=== PATIENT | male | born 1945 | race Caucasian/White ===

== ENCOUNTER 2016-12-12 15:00 | Emergency (ER) | payer MEDICARE, OTHER ==
[2016-12-12 15:31] VITALS: BP 128/89
--- NOTE | 2016-12-12 15:47 | EDM.PDOC ---
ED HPI GENERAL MEDICAL PROBLEM - General Chief Complaint: General Stated Complaint: cold Time Seen by Provider: 12/12/16 15:30 Source of Information: Reports: Patient History Limitations: Reports: No limitations - History of Present Illness INITIAL COMMENTS - FREE TEXT/NARRATIVE: 71 yr old male with 3 week history of nasal congestion, dry cough which is productive in the AM of clear sputum. Cough is worse of the past couple of days. No fever, sore throat-irritated and 'thick back there', denies sinus pain or pressure. Pt is currently on 14 day course of Levaquin 750mg tablets from another provider after undergoing medical workup and having been diagnosed with a UTI. He had hematuria which is now resolved. Onset: gradual Duration: Week(s): Severity: mild Improves with: Reports: None Worsens with: Reports: None Associated Symptoms: Reports: denies other symptoms - Related Data Allergies Allergy/AdvReac Type Severity Reaction Status Date / Time lisinopril Allergy Severe Difficulty Verified 12/12/16 15:17 Breathing Penicillins Allergy Swelling Verified 12/12/16 15:17 Home Meds: Home Meds Atenolol [Tenormin] 50 mg PO DAILY 12/30/13 [History] Irbesartan [Avapro] 100 mg PO DAILY 12/30/13 [History] atorvaSTATin [Lipitor] 20 mg PO DAILY 12/30/13 [History] Apixaban [Eliquis] 5 mg PO BID 03/06/15 [History] Levofloxacin [IJD: Levofloxacin] 750 mg PO DAILY 12/12/16 [History] Past Medical History HEENT History: Reports: Impaired vision Cardiovascular History: Reports: Afib, High cholesterol, Hypertension Other Cardiovascular History: atrial flutter Other Neuro History: subdural hematoma Dermatologic History: Reports: Psoriasis - Infectious Disease History Infectious Disease History: Reports: Chicken pox, Measles, Mumps - Past Surgical History Other Cardiovascular Surgeries/Procedures: aortic stent Social & Family History - Tobacco Use Smoking Status *Q: Current Every Day Smoker Years of Tobacco use: 50 Packs/Tins Daily: 0.5 Used Tobacco, but Quit: No Second Hand Smoke Exposure: No - Caffeine Use Caffeine Use: Reports: None - Alcohol Use Days Per Week of Alcohol Use: 1 Number of Drinks Per Day: 1 Total Drinks Per Week: 1 - Recreational Drug Use Recreational Drug Use: No ED ROS GENERAL - Review of Systems Review Of Systems: See Below Constitutional: Reports: no symptoms HEENT: Reports: Rhinitis Respiratory: Reports: Cough, Sputum (scant clear sputum) Cardiovascular: Reports: Other (hx of irregular heart rhythm, both a flutter and a fib. Off amiodarone 3 years ago, cardiology appt on Monday and pt wants to restart.) Musculoskeletal: Reports: no symptoms Neurological: Reports: No Symptoms Psychiatric: Reports: No symptoms Hematologic/Lymphatic: Reports: no symptoms Immunologic: Reports: no symptoms ED EXAM, GENERAL - Physical Exam Exam: See Below Exam Limited By: No limitations General Appearance: alert, no apparent distress Eye Exam: bilateral eye: normal inspection Ears: normal external exam, normal canal, hearing grossly normal, normal TMs Nose: normal inspection, clear rhinorrhea (mucosa swelling) Throat/Mouth: Normal inspection, Normal lips, Normal voice, Other (clear post nasal drainage) Head: atraumatic, normocephalic Neck: normal inspection, supple, non-tender Respiratory/Chest: no respiratory distress, lungs clear, normal breath sounds Cardiovascular: irregularly irregular Neurological: alert, oriented, normal cognition, normal gait Psychiatric: normal affect, normal mood Course - Vital Signs Last Recorded V/S: Last Vital Signs Temp 36.4 C 12/12/16 15:22 Pulse 80 12/12/16 15:22 Resp 16 12/12/16 15:22 BP 128/89 12/12/16 15:22 Pulse Ox 98 12/12/16 15:22 Departure - Departure Time of Disposition: 15:47 Disposition: Home, Self-Care 01 Condition: good Clinical Impression: Post-nasal drip Instructions: Nasal Allergies Referrals: PCP,None [Primary Care Provider] - Forms: ED Department Discharge Additional Instructions: 1. Continue your previously prescribed medications. 2. Start Claritin or loratadine once per day. 3. Keep all scheduled appointments as discussed. - Problem List & Annotations (1) Post-nasal drip SNOMED Code(s): 27098746 Code(s): R09.82 - POSTNASAL DRIP Status: Acute Priority: Medium - Problem List Review Problem List Initiated/Reviewed/Updated: Yes
== END 2016-12-12 16:13 | disposition home or self-care (01) ==
LOC: JP.ED 15:00
DX: R09.82 Postnasal drip (principal); I48.91 Unspecified atrial fibrillation; I10 Essential (primary) hypertension; F17.210 Nicotine dependence, cigarettes, uncomplicated; E78.00 Pure hypercholesterolemia, unspecified; Z79.899 Other long term (current) drug therapy; Z98.890 Other specified postprocedural states; Z88.0 Allergy status to penicillin; Z88.8 Allergy status to other drugs, medicaments and biological substances
CPT/HCPCS: 99282; 99283

== ENCOUNTER 2016-12-30 07:44 | Emergency (ER) | payer MEDICARE, OTHER ==
[2016-12-30 07:58] VITALS: BP 155/115
--- NOTE | 2016-12-30 08:23 | EDM.PDOC ---
ED HPI GENERAL MEDICAL PROBLEM - General Chief Complaint: Skin Complaint Stated Complaint: RT ARM INFECTED Time Seen by Provider: 12/30/16 08:15 Source of Information: Reports: Patient, Old Records, RN Notes Reviewed History Limitations: Reports: No Limitations - History of Present Illness INITIAL COMMENTS - FREE TEXT/NARRATIVE: 71-year-old gentleman presents emergency department day complaint of right arm, he recently had IV placement for a CT scan following placement and IV he's developed a red patch about the size of a softball in his antecubital region on the right arm he denies any fevers however it is warm to the touch - Related Data Allergies Allergy/AdvReac Type Severity Reaction Status Date / Time lisinopril Allergy Severe Difficulty Verified 12/30/16 07:58 Breathing Penicillins Allergy Swelling Verified 12/30/16 07:58 Home Meds: Home Meds Atenolol [Tenormin] 25 mg PO DAILY 12/30/13 [History] Irbesartan [Avapro] 100 mg PO DAILY 12/30/13 [History] atorvaSTATin [Lipitor] 20 mg PO DAILY 12/30/13 [History] Apixaban [Eliquis] 5 mg PO BID 03/06/15 [History] Sotalol [Betapace, Sorine] 80 mg PO BID 12/30/16 [History] Past Medical History HEENT History: Reports: Impaired Vision Cardiovascular History: Reports: Afib, High Cholesterol, Hypertension Other Cardiovascular History: atrial flutter Genitourinary History: Reports: Other (See Below) Other Genitourinary History: recent uti possible cyst Other Neuro History: subdural hematoma Dermatologic History: Reports: Psoriasis - Infectious Disease History Infectious Disease History: Reports: Chicken Pox, Measles, Mumps - Past Surgical History Other Cardiovascular Surgeries/Procedures: aortic stent Social & Family History - Tobacco Use Smoking Status *Q: Current Every Day Smoker Years of Tobacco use: 50 Packs/Tins Daily: 0.5 Used Tobacco, but Quit: No Second Hand Smoke Exposure: Yes - Caffeine Use Caffeine Use: Reports: Coffee Other Caffeine Use: decaf coffee - Alcohol Use Days Per Week of Alcohol Use: 1 Number of Drinks Per Day: 0 Total Drinks Per Week: 0 - Recreational Drug Use Recreational Drug Use: No ED ROS GENERAL - Review of Systems Review Of Systems: See Below Constitutional: Denies: Fever, Chills HEENT: Reports: No Symptoms Respiratory: Reports: No Symptoms Cardiovascular: Reports: No Symptoms Skin: Reports: Rash, Erythema, Change in Color ED EXAM, SKIN/RASH Exam: See Below Text/Narrative:: Examination of the right arm radial pulses 2+ there is an erythematous patch in the antecubital region about the size of a softball it is warm to the touch it is not tender to the touch and do not appreciate any streak Exam Limited By: No Limitations General Appearance: Alert, WD/WN, No Apparent Distress Course - Vital Signs Last Recorded V/S: Last Vital Signs Temp 97.7 F 12/30/16 08:04 Pulse 77 12/30/16 08:04 Resp 16 12/30/16 08:04 BP 155/115 H 12/30/16 08:04 Pulse Ox 98 12/30/16 08:04 Departure - Departure Time of Disposition: 08:23 Disposition: Home, Self-Care 01 Condition: good Clinical Impression: Right arm cellulitis - Discharge Information Forms: ED Department Discharge Additional Instructions: Take full course of antibiotics, use Tylenol or Motrin as needed for pain control, Please followup with your primary care provider in 3-5 days if not better, please call return to the emergency department with worsening of symptoms. - Assessment/Plan Plan: Assessment Acuity = acute Site and laterality = cellulitis right arm Etiology = probably related to recent IV placement with bacterial cause Manifestations = none Location of injury = home Lab values = none Plan Because of his penicillin allergy elected to treat with clindamycin 300 mg 4 times a day x7 days follow up with primary care in 3-5 days if no improvement Patient was in agreement with the plan all questions were answered, they were instructed to return to the emergency department or call for worsening symptoms. This note was dictated using iPointer voice recognition software please call with any questions.
== END 2016-12-30 08:47 | disposition home or self-care (01) ==
LOC: JP.ED 07:44
DX: L03.113 Cellulitis of right upper limb (principal); H54.7 Unspecified visual loss; I48.91 Unspecified atrial fibrillation; E78.00 Pure hypercholesterolemia, unspecified; I10 Essential (primary) hypertension; L40.9 Psoriasis, unspecified; F17.210 Nicotine dependence, cigarettes, uncomplicated; Z88.0 Allergy status to penicillin; Z88.8 Allergy status to other drugs, medicaments and biological substances; Z79.899 Other long term (current) drug therapy
CPT/HCPCS: 99283

== ENCOUNTER 2017-01-01 13:26 | Emergency (ER) | payer MEDICARE, OTHER | END 2017-01-01 14:30 | disposition left against medical advice (07) | LOC: JP.ED 13:26 | DX: Z53.21 Procedure and treatment not carried out due to patient leaving prior to being seen by health care provider (principal) ==

== ENCOUNTER 2017-01-02 08:04 | Emergency (ER) | payer MEDICARE, OTHER ==
[2017-01-02 08:13] VITALS: BP 162/102
--- NOTE | 2017-01-02 08:53 | EDM.PDOC ---
ED HPI GENERAL MEDICAL PROBLEM - General Chief Complaint: Skin Complaint Stated Complaint: RT ARM INFECTED Time Seen by Provider: 01/02/17 08:22 Source of Information: Reports: Patient History Limitations: Reports: No Limitations - History of Present Illness INITIAL COMMENTS - FREE TEXT/NARRATIVE: History of present illness: [71-year-old male who is presenting with an erythematous rash in the right antecubital fossa. He had been seen in [place] and had a CT examination with IV contrast in the IV was placed in the right antecubital fossa. He was seen here and started on antibiotics with concerns of cellulitis. He is mcc through a ten-day course of clindamycin. The erythema seems to be expanding and so he wanted to be rechecked. He's had no fevers or chills he does not feel ill he has been putting [id number] hydrocortisone cream on the rash. He's also developed a pruritic rash on his right lower abdomen. He thinks that this is somehow related to the cellulitis of his right antecubital fossa.] Review of systems: As per history of present illness and below otherwise all systems reviewed and negative. Past medical history: As per history of present illness and as reviewed below otherwise noncontributory. Surgical history: As per history of present illness and as reviewed below otherwise noncontributory. Social history: No reported history of drug or alcohol abuse. Family history: As per history of present illness and as reviewed below otherwise noncontributory. Physical exam: HEENT: Atraumatic, normocephalic, pupils reactive, negative for conjunctival pallor or scleral icterus, mucous membranes moist, throat clear, neck supple, nontender, trachea midline. Lungs: Clear to auscultation, breath sounds equal bilaterally, chest nontender. Heart: S1S2, regular, negative for clicks, rubs, or JVD. Abdomen: Soft, nondistended, nontender. Negative for masses or hepatosplenomegaly. Negative for costovertebral tenderness. he does have a patch of erythema on the right lateral abdomen that is-like in nature which he has been scratching. Pelvis: Stable nontender. Genitourinary: Deferred. Rectal: Deferred. Extremities:examination of the right antecubital fossa does reveal a 12 cm diameter erythematous lesion that is slightly raised and slightly warm with a central focus being the acute fossa. This appears to be more an inflammatory reaction rather than an infection but I am not certain. Neuro: Awake, alert, oriented. Exam nonfocal. Diagnostics: [] Therapeutics: [] Impression: [cellulitis of the right antecubital fossa Id reaction of the right abdomen] Plan: [I was going to place him on prednisone because of a strong inflammatory component to his reaction to the dye but he is on sotalol and the drug interaction between sotalol and prednisone it is severe enough that I don't think we want to take that risk. Hence we will continue with the clindamycin and [id number] hydrocortisone. He is not running a fever or feeling ill and so he will this rash is expanding and we will continue on this course and if he becomes yellow or feverish and he'll need to be reevaluated. Hopefully of just clear up on its own.] Definitive disposition and diagnosis as appropriate pending reevaluation and review of above. - Related Data Allergies Allergy/AdvReac Type Severity Reaction Status Date / Time lisinopril Allergy Severe Difficulty Verified 01/02/17 08:24 Breathing Penicillins Allergy Swelling Verified 01/02/17 08:24 Home Meds: Home Meds Atenolol [Tenormin] 25 mg PO DAILY 12/30/13 [History] Irbesartan [Avapro] 100 mg PO DAILY 12/30/13 [History] atorvaSTATin [Lipitor] 20 mg PO DAILY 12/30/13 [History] Apixaban [Eliquis] 5 mg PO BID 03/06/15 [History] Clindamycin HCl 300 mg PO QID #28 capsule 12/30/16 [Rx] Sotalol [Betapace, Sorine] 80 mg PO BID 12/30/16 [History] Clindamycin HCl 1 tab PO TID 01/02/17 [History] Past Medical History HEENT History: Reports: Impaired Vision Cardiovascular History: Reports: Afib, High Cholesterol, Hypertension Other Cardiovascular History: atrial flutter Genitourinary History: Reports: Other (See Below) Other Genitourinary History: recent uti possible cyst known bladder stone Other Neuro History: subdural hematoma Dermatologic History: Reports: Psoriasis - Infectious Disease History Infectious Disease History: Reports: Chicken Pox, Measles, Mumps - Past Surgical History Other Cardiovascular Surgeries/Procedures: aortic stent Social & Family History - Tobacco Use Smoking Status *Q: Current Every Day Smoker Years of Tobacco use: 50 Packs/Tins Daily: 0.5 Used Tobacco, but Quit: No Second Hand Smoke Exposure: Yes - Caffeine Use Caffeine Use: Reports: Coffee Other Caffeine Use: decaf coffee - Alcohol Use Days Per Week of Alcohol Use: 1 Number of Drinks Per Day: 0 Total Drinks Per Week: 0 - Recreational Drug Use Recreational Drug Use: No ED ROS GENERAL - Review of Systems Review Of Systems: ROS reveals no pertinent complaints other than HPI. ED EXAM, SKIN/RASH Exam: See Below Course - Vital Signs Last Recorded V/S: Last Vital Signs Temp 35.5 C 01/02/17 08:23 Pulse 88 01/02/17 08:23 Resp 16 01/02/17 08:23 BP 162/102 H 01/02/17 08:23 Pulse Ox 92 L 01/02/17 08:23 Departure - Departure Time of Disposition: 08:53 Disposition: Home, Self-Care 01 Condition: good Clinical Impression: Cellulitis of antecubital fossa - Discharge Information Forms: ED Department Discharge
== END 2017-01-02 09:25 | disposition home or self-care (01) ==
LOC: JP.ED 08:04
DX: L03.113 Cellulitis of right upper limb (principal); I10 Essential (primary) hypertension; I48.91 Unspecified atrial fibrillation; E78.00 Pure hypercholesterolemia, unspecified; F17.210 Nicotine dependence, cigarettes, uncomplicated; Z95.5 Presence of coronary angioplasty implant and graft; Z79.899 Other long term (current) drug therapy; Z88.0 Allergy status to penicillin; Z88.8 Allergy status to other drugs, medicaments and biological substances
CPT/HCPCS: 99282; 99283

== ENCOUNTER 2019-11-18 23:36 | Emergency (ER) | payer MEDICARE, OTHER ==
[2019-11-18] MEDS ORDERED: Sodium Chloride 0.9% 10 ML Syringe FLUSH PRN (23:48)
--- NOTE | 2019-11-18 23:58 | EDM.PDOC ---
ED HPI GENERAL MEDICAL PROBLEM - General Chief Complaint: Neuro Symptoms/Deficits Stated Complaint: LIMP LEFT ARM Time Seen by Provider: 11/18/19 23:40 Source of Information: Reports: Patient, RN History Limitations: Reports: Other (limited old records) - History of Present Illness INITIAL COMMENTS - FREE TEXT/NARRATIVE: 74 yo male from [place], [place] is up here since last Monday visiting his cabin. Tonight he experienced onset of weakness and intermittent pain to the L arm that came on at 10 pm as he was getting into bed. No hx of the same. Does have a pacemaker. No chest pain. Has not missed any of his meds. L hand is cold and he has pain to the L hand. The entire L arm is weak. Smokes 1/2 ppd. Has a past hx of a dissecting thoracic aneurysm. 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: Other (see below) (none) - Related Data Allergies Allergy/AdvReac Type Severity Reaction Status Date / Time lisinopril Allergy Severe Difficulty Verified 11/18/19 23:47 Breathing Penicillins Allergy Swelling Verified 11/18/19 23:47 Home Meds: Home Meds Irbesartan [Avapro] 150 mg PO DAILY 12/30/13 [History] Apixaban [Eliquis] 5 mg PO BID 03/06/15 [History] Clobetasol [Clobetasol Propionate 0.05%] 30 gm TOP BID PRN 02/12/19 [History] Hydrocodone/Acetaminophen [Hydrocodon-Acetaminoph 7.5-325] 1 each PO Q4HR PRN [History] Metoprolol Tartrate 50 mg PO BID 02/12/19 [History] atorvaSTATin [Lipitor] 80 mg PO DAILY 02/12/19 [History] Past Medical History HEENT History: Reports: Impaired Vision Cardiovascular History: Reports: Afib, High Cholesterol, Hypertension Other Cardiovascular History: atrial flutter Respiratory History: Reports: None Gastrointestinal History: Reports: None Genitourinary History: Reports: Other (See Below) Other Genitourinary History: recent uti possible cyst known bladder stone Musculoskeletal History: Reports: Other (See Below) Other Musculoskeletal History: R shoulder pain Other Neuro History: subdural hematoma Psychiatric History: Reports: None Endocrine/Metabolic History: Reports: None Hematologic History: Reports: None Immunologic History: Reports: None Oncologic (Cancer) History: Reports: None Dermatologic History: Reports: Psoriasis - Infectious Disease History Infectious Disease History: Reports: Chicken Pox, Measles, Mumps - Past Surgical History HEENT Surgical History: Reports: None Cardiovascular Surgical History: Reports: Pacer Other Cardiovascular Surgeries/Procedures: aortic stent Social & Family History - Caffeine Use Caffeine Use: Reports: None Other Caffeine Use: decaf coffee ED ROS GENERAL - Review of Systems Review Of Systems: See Below Constitutional: Reports: No Symptoms HEENT: Reports: No Symptoms Respiratory: Reports: No Symptoms Cardiovascular: Reports: No Symptoms Endocrine: Reports: No Symptoms GI/Abdominal: Reports: No Symptoms : Reports: No Symptoms Musculoskeletal: Reports: Hand Pain (L hand/wrist pain). Denies: Leg Pain Neurological: Reports: Weakness (L hand/arm) Psychiatric: Reports: No Symptoms ED EXAM, NEURO - Physical Exam Exam: See Below Exam Limited By: No Limitations General Appearance: Alert, WD/WN, No Apparent Distress, Obese Eye Exam: Bilateral Eye: Normal Inspection Ears: Normal External Exam, Normal Canal, Hearing Grossly Normal Nose: Normal Inspection, Normal Mucosa Throat/Mouth: Normal Inspection, Normal Lips, Normal Oropharynx, Normal Voice, No Airway Compromise Head Exam: Atraumatic, Normocephalic Neck: Normal Inspection Respiratory/Chest: No Respiratory Distress, Lungs Clear, Normal Breath Sounds, No Accessory Muscle Use Cardiovascular: Regular Rate, Rhythm, No Edema GI/Abdominal: Normal Bowel Sounds, Soft, Non-Tender, No Distention Neurological: Alert, Normal Mood/Affect, Normal Dorsiflexion, CN II-XII Intact, Oriented x 3, Other (sensation good in the L arm/hand. L arm barely able to lift off bed. No hand grasp. ) Back Exam: Normal Inspection Psychiatric: Normal Affect, Normal Mood Skin Exam: Dry, Intact, No Rash, Other (L hand cool and cyanotic. Radial pulse barely palpable. ) EKG INTERPRETATION EKG Date: 11/18/19 Time: 23:30 Rhythm: Other (paced rhythm) Rate (Beats/Min): 63 P-Wave: Absent QRS: Wide Comparison: NA - No Prior EKG Course - Vital Signs Text/Narrative:: Stroke scale 2 for L arm weakness. Called [facility] transfer line @ 0045h, Dr. Boswell, neurology, [place] [address]110[place] Last Recorded V/S: Last Vital Signs Temp 35.6 C L 11/18/19 23:48 Pulse 60 11/18/19 23:48 Resp 13 11/19/19 00:38 BP 144/85 H 11/19/19 00:38 Pulse Ox 94 L 11/19/19 00:38 - Orders/Labs/Meds Orders: Active Orders 24 hr Category Date Time Status Cardiac Monitoring [RC] .As Directed Care 11/18/19 23:48 Active EKG Documentation Completion [RC] ASDIRECTED Care 11/18/19 23:48 Active UA W/MICROSCOPIC [URIN] Stat Lab 11/18/19 23:48 Ordered Lactated Ringers [Ringers, Lactated] 1,000 ml Med 11/19/19 00:30 Active IV ASDIRECTED Sodium Chloride 0.9% [Saline Flush] Med 11/18/19 23:48 Active 10 ml FLUSH ASDIRECTED PRN Saline Lock Insert [OM.PC] Routine Oth 11/18/19 23:48 Ordered EKG 12 Lead [EK] Routine Ther 11/18/19 23:48 Ordered Medication Orders Lactated Ringer's (Ringers, Lactated) 1,000 mls @ 150 mls/hr IV ASDIRECTED KAI Last Admin: 11/19/19 00:35 Dose: 150 mls/hr Sodium Chloride (Saline Flush) 10 ml FLUSH ASDIRECTED PRN PRN Reason: Keep Vein Open Last Admin: 11/19/19 00:09 Dose: 10 ml Labs: Laboratory Tests 11/18/19 11/18/19 11/18/19 Range/Units 00:00 00:00 00:00 WBC 15.4 H (4.5-11.0) K/uL RBC 4.77 (4.30-5.90) M/uL Hgb 15.8 H (12.0-15.0) g/dL Hct 49.8 (40.0-54.0) % MCV 104 H (80-98) fL MCH 33 H (27-31) pg MCHC 32 (32-36) % Plt Count 151 (150-400) K/uL PT 12.1 H (9.5-12.0) sec INR 1.13 (0.80-1.20) APTT 27.1 (27.0-36.0) sec Sodium 142 (140-148) mmol/L Potassium 4.1 (3.6-5.2) mmol/L Chloride 106 (100-108) mmol/L Carbon Dioxide 25 (21-32) mmol/L Anion Gap 11.1 (5.0-14.0) mmol/L BUN 25 H (7-18) mg/dL Creatinine 1.3 (0.8-1.3) mg/dL Est Cr Clr Drug Dosing 52.29 mL/min Estimated GFR (MDRD) 54 L (>60) Glucose 128 H (74-106) mg/dL Calcium 8.5 (8.5-10.1) mg/dL Troponin I < 0.017 (0.000-0.056) ng/mL Meds: Medications Generic Name Dose Route Start Last Admin Trade Name Freq PRN Reason Stop Dose Admin Lactated Ringer's 1,000 mls @ 150 mls/hr 11/19/19 00:30 11/19/19 00:35 Ringers, Lactated IV 150 mls/hr ASDIRECTED KAI Administration Sodium Chloride 10 ml 11/18/19 23:48 11/19/19 00:09 Saline Flush FLUSH 10 ml ASDIRECTED PRN Administration Keep Vein Open - Radiology Interpretation Free Text/Narrative:: Head CT scan-Impression: 1. No acute intracranial process. 2. Chronic ischemic changes, as above. CT Results Date: 11/19/19 - Re-Assessments/Exams Free Text/Narrative Re-Assessment/Exam: 11/19/19 00:28 Strength in the L arm and hand fluctuates considerably during his ER course. Free Text/Narrative Re-Assessment/Exam: 11/19/19 00:58 Now strength in L arm is almost back to normal. Departure - Departure Time of Disposition: 01:30 Disposition: DC/Tfer to Acute Hospital 02 Condition: Fair Clinical Impression: TIA (transient ischemic attack), Tobacco abuse disorder - Discharge Information *PRESCRIPTION DRUG MONITORING PROGRAM REVIEWED*: Not Applicable *COPY OF PRESCRIPTION DRUG MONITORING REPORT IN PATIENT JT: Not Applicable Referrals: PCP,None [Primary Care Provider] - Forms: ED Department Discharge Sepsis Event Note - Focused Exam Vital Signs: Vital Signs Temp Pulse Resp BP Pulse Ox 11/19/19 00:38 13 144/85 H 94 L 11/18/19 23:48 35.6 C L 60 16 144/88 H 95 Date Exam was Performed: 11/19/19 Time Exam was Performed: 01:09 - My Orders Last 24 Hours: My Active Orders 11/18/19 23:48 Cardiac Monitoring [RC] .As Directed EKG Documentation Completion [RC] ASDIRECTED UA W/MICROSCOPIC [URIN] Stat Sodium Chloride 0.9% [Saline Flush] 10 ml FLUSH ASDIRECTED PRN Saline Lock Insert [OM.PC] Routine EKG 12 Lead [EK] Routine 11/19/19 00:30 Lactated Ringers [Ringers, Lactated] 1,000 ml IV ASDIRECTED - Assessment/Plan Last 24 Hours: My Active Orders 11/18/19 23:48 Cardiac Monitoring [RC] .As Directed EKG Documentation Completion [RC] ASDIRECTED UA W/MICROSCOPIC [URIN] Stat Sodium Chloride 0.9% [Saline Flush] 10 ml FLUSH ASDIRECTED PRN Saline Lock Insert [OM.PC] Routine EKG 12 Lead [EK] Routine 11/19/19 00:30 Lactated Ringers [Ringers, Lactated] 1,000 ml IV ASDIRECTED
[2019-11-19 00:01] VITALS: PULSE 60
[2019-11-19] MEDS ORDERED: Lactated Ringers 1,000 ML IV SCH (00:30)
--- NOTE | 2019-11-19 00:41 | CRLCT ---
Indication: Left upper extremity weakness and numbness Technique: Nonenhanced axial CT imaging through the head. Sagittal and coronal reconstructions are provided. Comparison: None Findings: There is no intracranial hemorrhage, edema, or mass effect. Galvin-white matter differentiation is preserved. Confluent hypoattenuation involving the cerebral white matter most likely reflects chronic microvascular ischemic change. Multiple small remote lacunar infarcts are noted in the basal ganglia bilaterally. The ventricles are normal in size. The basal cisterns are patent. The calvarium is intact. The visualized paranasal sinuses and mastoid air cells are aerated. Impression: 1. No acute intracranial process. 2. Chronic ischemic changes, as above. Please note that all CT scans at this facility use dose modulation, iterative reconstruction, and/or weight-based dosing when appropriate to reduce radiation dose to as low as reasonably achievable. Dictated by Gela Carlson MD @ Nov 19 2019 12:31AM Signed by Dr. Gela Carlson @ Nov 19 2019 12:38AM
[2019-11-19 01:24] VITALS: BP 116/86
== END 2019-11-19 02:34 ==
LOC: JP.ED 23:36
DX: G45.9 Transient cerebral ischemic attack, unspecified (principal); F17.200 Nicotine dependence, unspecified, uncomplicated; Z88.8 Allergy status to other drugs, medicaments and biological substances; Z88.0 Allergy status to penicillin; I48.91 Unspecified atrial fibrillation; E78.00 Pure hypercholesterolemia, unspecified; I10 Essential (primary) hypertension; Z79.01 Long term (current) use of anticoagulants; Z79.899 Other long term (current) drug therapy
CPT/HCPCS: 36415; 70450; 80048; 84484; 85027; 85610; 85730; 93005; 93010; 96360; 96361; 99285; J7120